=== PATIENT | male | born 1980 | race Caucasian/White ===

== ENCOUNTER 2017-05-25 06:32 | Emergency (ER) | payer SELFPAY ==
[2017-05-25 07:04] VITALS: PULSE 78; TEMP 98.3; BMI 32.1
--- NOTE | 2017-05-25 07:11 | PDOC ---
History of Present Illness <Jeremías Lopes - Last Filed: 05/25/17 08:28> - General History Source: Patient Exam Limitations: No Limitations - History of Present Illness Initial Comments: 05/25/17 08:42 The patient is a 36 year old male, with no significant past medical history, who presents to the emergency department complaining of sudden onset of back pain since earlier this morning. The patient reports he was going to take a shower to get ready for work, but when he went to reach out and move the showerhead he felt his back tighten and a pulling sensation. Patient reports mild pain with walking s/p incident, which has resolved. He localizes his pain to the left mid back. He denies any radiation of back pain, numbness, or tingling. Patient reports he has had normal bowel movements an durination, No associated fever/chills, IVDU. 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 He denies any chest pain, shortness of breath, diaphoresis, or palpitations. 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 Former smoker. Social ETOH use. No recreational drug use. <Anshul Geronimo - Last Filed: 05/25/17 08:44> - General Stated Complaint: INJURY/BACK Time Seen by Provider: 05/25/17 07:08 Past History - Past Medical History Anemia: No Asthma: No Cancer: No Cardiac Disorders: No CVA: No COPD: No DVT: No Dementia: No Diabetes: No Dialysis: No GI Disorders: No Disorders: No HTN: No Hypercholesterolemia: No HIV: No Kidney Stones: No Liver Disease: No Psychiatric Problems: No Seizures: No Thyroid Disease: No Lung CA: No - Surgical History Abdominal Surgery: No Appendectomy: No Cardiac Surgery: No Cholecystectomy: No Gastric Stapling: No GI Surgery: No Lung Surgery: No Neurologic Surgery: No - Psycho/Social/Smoking Cessation Hx Anxiety: No Suicidal Ideation: No Smoking History: Former smoker Have you smoked in the past 12 months: No If you are a former smoker, when did you quit?: 6 years ago Information on smoking cessation initiated: No Hx Alcohol Use: Yes (socially) Drug/Substance Use Hx: No Substance Use Type: None <Jeremías Lopes - Last Filed: 05/25/17 08:28> <Soumya Geronimoleanazeferino - Last Filed: 05/25/17 08:44> - Past Medical History Home Medications: Ambulatory Orders Cyclobenzaprine HCl [Flexeril 10 mg] 10 mg PO BID PRN #60 tablet 05/25/17 Review of Systems - Review of Systems Able to Perform ROS?: Yes Comments:: 05/25/17 08:43 Constitutional - no reported Fever, Chills, - no reported urinary or bowel incontinence Musculoskelatal - +back pain, no reported joint swelling Skin - no reported bruising, erythema, rash Neurological- no reported headache, neckpain, numbness, focal weakness, tingling. <JuanpabloSoumyajanice - Last Filed: 05/25/17 08:44> *Physical Exam - Vital Signs Last Vital Signs Temp Pulse Resp BP Pulse Ox 98.3 F 78 18 129/76 96 05/25/17 06:56 05/25/17 06:56 05/25/17 06:56 05/25/17 06:56 05/25/17 06:56 <Jeremías Lopes - Last Filed: 05/25/17 08:28> - Vital Signs Last Vital Signs Temp Pulse Resp BP Pulse Ox 98.3 F 78 20 123/80 100 05/25/17 06:56 05/25/17 08:35 05/25/17 08:35 05/25/17 08:35 05/25/17 08:35 - Physical Exam Comments: 05/25/17 08:44 GENERAL: The patient is awake, alert, and fully oriented, Nontoxic - in no acute distress. EXTREMITIES: Normal range of motion, no edema. No clubbing or cyanosis. No cords, erythema, or tenderness. BACK: Mild tenderness of L mid thoracic back approx T10, no midline tenderness NEUROLOGICAL: No facial asymmetry, Normal speech, moving all 4 extremities spontaneously and symmetrically, strength intact bilaterally. PSYCH: Normal mood, normal affect. SKIN: Warm, Dry, normal turgor. <Geronimo,Soumyajanice - Last Filed: 05/25/17 08:44> ED Treatment Course - Medications Given in the ED: ED Medications Discontinued Medications Generic Name Dose Route Start Last Admin Trade Name Freq PRN Reason Stop Dose Admin Diazepam 5 mg 07/13/17 07:43 05/25/17 08:34 Valium - PO 05/25/17 07:44 5 mg ONCE ONE Administration Ketorolac Tromethamine 60 mg 05/25/17 07:42 05/25/17 08:34 Toradol Injection - IM 05/25/17 07:43 60 mg ONCE ONE Administration <Anshul Geronimo - Last Filed: 05/25/17 08:44> Medical Decision Making - Medical Decision Making 05/25/17 07:43 36y M no known pmhx presents with back pain, pt was doing well and getting ready for work and he reached up to the shower head and felt pain in his L thoracic/upper lumbar region, no associated numbness/tingling/weakness, urinar/ bowel incontinence. no recent trauma, heavy lifting. on exma pt has mild tenderness in the parapsinal back at approx T10 region. will give valium/toradol will dc with pmd fu return precautions were discussed I discussed the physical exam findings, ancillary test results and final diagnoses with the patient. I answered all of the patient's questions. The patient was satisfied with the care received and felt comfortable with the discharge plan and treatment plan. The patient will call their primary care physician within 24 hours to arrange follow-up and will return to the Emergency Department with any new, persistent or worsening symptoms. <Jeremías Lopes - Last Filed: 05/25/17 08:28> *DC/Admit/Observation/Transfer - Discharge Dispostion Admit: No <Jeremías Lopes - Last Filed: 05/25/17 08:28> - Attestations Scribe Attestion: 05/25/17 08:44 Documentation prepared by Anshul Geronimo, acting as certified medical coder for Jeremías Lopes MD. <Anshul Geronimo - Last Filed: 05/25/17 08:44> Diagnosis at time of Disposition: Upper back strain Qualifiers: Encounter type: initial encounter Qualified Code(s): S29.012A - Strain of muscle and tendon of back wall of thorax, initial encounter - Discharge Dispostion Disposition: HOME Condition at time of disposition: Improved - Prescriptions Prescriptions: Cyclobenzaprine HCl [Flexeril 10 mg] 10 mg PO BID PRN #60 tablet PRN Reason: Back Pain - Referrals Referrals: [facility] [Provider Group] - Patient Instructions Printed Discharge Instructions: DI for Thoracic Back Pain Additional Instructions: Return to the emergency department immediately with ANY new, persistent or worsening symptoms including numbness, tingling, weakness, fevers or any other concerns. Take ibuprofen (400mg)/tylenol(650mg) every 6 hours for 2 days. Take the flexeril twice daily if you still have pain/discomfort. Apply heat to your sore muscles. You MUST call and follow up with your doctor in 3-4 days for further evaluation of your symptoms. Your emergency department visit is not complete without a followup with your doctor for reevaluation.. Results were discussed with you. Please make sure your doctor reviews the results of your emergency evaluation. - Post Discharge Activity Work/School Note: Back to Work
[2017-05-25] MEDS ORDERED: KETOROLAC TROMETHAMINE 60 MG/2 ML VIAL IM ONE (07:42)
[2017-05-25] MEDS ORDERED: diazePAM 5 MG TABLET PO ONE (07:43)
[2017-05-25] MEDS ORDERED: KETOROLAC TROMETHAMINE 60 MG/2 ML VIAL ONE (08:13)
[2017-05-25] MEDS ORDERED: diazePAM 5 MG TABLET ONE (08:13)
[2017-05-25 08:36] VITALS: BP 123/80
== END 2017-05-25 08:36 | disposition home or self-care (01) ==
LOC: JER 06:32
PROC: 3E0233Z Introduction of Anti-inflammatory into Muscle, Percutaneous Approach (ICD-10-PCS; principal; 2017-05-25)
DX: S29.012A Strain of muscle and tendon of back wall of thorax, initial encounter (principal); X50.1XXA Overexertion from prolonged static or awkward postures, initial encounter; Y93.E1 Activity, personal bathing and showering; Y92.091 Bathroom in other non-institutional residence as the place of occurrence of the external cause; Y99.8 Other external cause status
CPT/HCPCS: 99281-25